=== PATIENT | female | born 1955 | race Caucasian/White ===

== ENCOUNTER → 2023-05-04 10:48 | Outpatient (CLI) | payer OTHER, SELFPAY ==
--- NOTE | ~2023-05-04 | US_ITS ---
EXAMINATION: US pelvic complete w TV DATE: 05/04/2023 12:07 INDICATION: Postmenopausal bleeding Comparison:No prior studies for comparison. TECHNIQUE: Multiple transabdominal and endovaginal sonographic images of the pelvis performed. FINDINGS: The uterus measures 7 x 3.3 x 3.9 cm. Uterus is retroverted The endometrial complex measure s 11 mm. The right ovary measures 2.2 x 1.6 x 1.4 cm and the left ovary measures 2.1 x 2.4 x 1.5 cm. There ar e small follicles in each ovary. Normal doppler signal in both ovaries. There is no free fluid in the pelvis. There are no abnormal masses seen on either side. IMPRESSION: 1. Thickened endomtrial complex. The differential diagnosis includes endometrial hyperplasia, polyp a nd carcinoma. Biopsy is recommended. Reviewed, dictated and finalized at location L. R BROKER IMPRESSION: 1. Thickened endomtrial complex. The differential diagnosis includes endometria l hyperplasia, polyp and carcinoma. Biopsy is recommended.
== END ==
PROVIDERS: PCP Family Medicine; Visit Provider Family Medicine
DX: N95.0 Postmenopausal bleeding (principal); R93.89 Abnormal findings on diagnostic imaging of other specified body structures
CPT/HCPCS: 76830; 76856

== ENCOUNTER → 2023-08-17 12:03 | Outpatient (CLI) | payer OTHER, SELFPAY ==
--- NOTE | ~2023-08-17 | MM_ITS ---
EXAMINATION: MM screening shani BI w omaira HISTORY: Screening mammogram TECHNIQUE: Craniocaudal and mediolateral oblique 3-D tomosynthesis images were obtained and synthetic 2-D images were generated. CAD analysis was submitted and interpreted. COMPARISON: No prior mammogram is available for comparison at this institution. BREAST PARENCHYMAL COMPOSITION: There are scattered areas of fibroglandular density. FINDINGS: There is no evidence of suspicious mass, calcification, or architectural distortion to sugg est malignancy in either breast. There has been no suspicious interval change. IMPRESSION: 1. No mammographic evidence of malignancy. 2. Recommend routine screening mammography in one year. BI-RADS Category 1: Negative Reviewed, dictated and finalized at location A. ET COUNTER
--- NOTE | ~2023-08-17 | XR_ITS ---
AP and lateral views of the bilateral hips Clinical history: Pain Findings: No acute fracture or dislocation is seen. Osseous alignment is anatomic. Bilateral hip join ts and SI joints are preserved. Soft tissues are unremarkable. Impression: No significant abnormality is seen. Reviewed, dictated and finalized at [facility]. [employer] Impression: No significant abnormality is seen.
== END ==
PROVIDERS: PCP Family Medicine; Visit Provider Family Medicine
DX: Z00.00 Encounter for general adult medical examination without abnormal findings (principal); Z12.31 Encounter for screening mammogram for malignant neoplasm of breast; M25.551 Pain in right hip; M25.552 Pain in left hip
CPT/HCPCS: 73521; 77063; 77067

== ENCOUNTER 2023-11-24 13:41 | Outpatient (CLI) | payer OTHER, SELFPAY ==
--- NOTE | ~2023-11-24 | US_ITS ---
EXAMINATION: US carotid duplex BI DATE: 11/24/2023 14:04 INDICATION: Abnormal thermal scan. TECHNIQUE: Grayscale, color Doppler, and pulsed Doppler images of the cervical carotid arteries were obtained. The degree of vessel stenosis is placed in one of the following categories: normal, <50%, 5 0-69%, >=70% but less than near-occlusion, near-occlusion, or total occlusion. Note that percent sten osis relative to normal distal artery lumen diameter is indirectly measured from velocity measurement s as described by Parker, et al. Radiology 2003; 229:340-346. Notes: Normal: Peak systolic velocity <125 centimeters/sec and no plaque <50%. Peak systolic velocity <125 ( EDV <40; ICA/CCA PSV ratio <2.0; used these factors only a tandem lesions or low cardiac output or co ntralateral disease) 50-69 %: PSV 125-230 (EDV 40-100; ratio 2-4) >= 70% but less than near occlusion: PSV greater than 230 (EDV > 100; ratio> 4.0) Near Occlusion: PSV that is variable; markedly narrowed lumen Occlusion: Absent flow on color/spectral Doppler and no lumen on castillo scale. COMPARISON: None. FINDINGS: RIGHT: The right common carotid artery (CCA) peak systolic velocity (PSV) is 71 cm/s. The right internal car otid artery (ICA) PSV is 64 cm/s. The right ICA end-diastolic velocity (EDV) is 22 cm/s. The right IC A/CCA PSV ratio is 0.9. The external carotid artery (ECA) PSV is 70 cm/s. There is antegrade flow in the right vertebral artery. LEFT: The left CCA PSV is 53 cm/s. The left ICA PSV is 73 cm/s. The left ICA EDV is 27 cm/s. The left ICA/C CA PSV ratio is 1.4. The ECA PSV is 65 cm/s. There is antegrade flow in the left vertebral artery. I ncidental note is made of a 2.8 cm left thyroid mass. IMPRESSION: 1. Less than 50% stenosis in the right internal carotid artery by sonographic criteria. 2. Less than 50% stenosis in the left internal carotid artery by sonographic criteria. 3: Left thyroid mass measures 2.8 cm. Recommend dedicated thyroid ultrasound. Reviewed, dictated and finalized at location B. IMPRESSION: 1. Less than 50% stenosis in the right internal carotid artery by sonographic c riteria. 2. Less than 50% stenosis in the left internal carotid artery by sonographic cr iteria. 3: Left thyroid mass measures 2.8 cm. Recommend dedicated thyroid ultrasound.
== END 2023-11-24 13:42 ==
LOC: MICIMG 13:42
PROVIDERS: PCP Family Medicine; Visit Provider Family Medicine
DX: R93.89 Abnormal findings on diagnostic imaging of other specified body structures (principal); I65.23 Occlusion and stenosis of bilateral carotid arteries
CPT/HCPCS: 93880

== ENCOUNTER 2023-12-01 13:09 | Outpatient (CLI) | payer OTHER, SELFPAY ==
--- NOTE | ~2023-12-01 | US_ITS ---
EXAMINATION: US thyroid DATE: 12/01/2023 13:35 INDICATION: Thyroid nodule. TECHNIQUE: Multiple ultrasound images of the thyroid were obtained. COMPARISON: Carotid ultrasound 11/24/2023. FINDINGS: The right thyroid lobe measures 4.3 x 1.0 x 0.8 cm. The left thyroid lobe measures 5.3 x 2.2 x 1.9 c m. In the left thyroid lobe, there is a 2.9 cm almost entirely solid, hypoechoic, wider than tall no dule with smooth margin without echogenic foci (TI-RADS TR4). IMPRESSION: 1. Left thyroid nodule. Ultrasound-guided fine needle aspiration is recommended. Reviewed, dictated and finalized at location A. IMPRESSION: 1. Left thyroid nodule. Ultrasound-guided fine needle aspiration is recommended .
== END 2023-12-01 13:10 ==
LOC: MICIMG 13:10
PROVIDERS: PCP Family Medicine; Visit Provider Family Medicine
DX: E04.9 Nontoxic goiter, unspecified (principal)
CPT/HCPCS: 76536

== ENCOUNTER 2024-11-03 15:00 | Outpatient (RCR) | payer OTHER, SELFPAY ==
--- NOTE | 2024-10-26 12:57 | OTOPEVAL1 ---
Assessment and note entered by Renato Arango, OTR/L, CHT OT Evaluation Information 10/26/24 Assessment Status Evaluation Subjective Information Patient reporting bilateral pain in the base of her thumbs. Functionally she reports feeling pain and limited with weight bearing on her hands during yoga, gardening/pulling weeds, pinching/ grabbing items out of the microwave, and writing. She reports noticing the right thumb pain about 6 months ago and then the left steadily increasing in the last 3 months. Reported Pain Level Pain Score 3/10 (R) thumb 2/10 (L) thumb Assessment OT Clinical Summary Patient referred to OT with dx of bilateral wrist pain. She presents with pain the wrists/base of the thumbs. 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 She presents with decreased dress fitter and especially decreased pinch strengths. She demonstrates reduced thumb mechanics during functional activities. Skilled OT indicated for education on joint protection, orthotic fabrication, therapeutic exercise, modalities, manual therapy, and adaptive ADL techniques to facilitate improved functional bilateral hand use. Plan of Care Interventions Therapeutic Exercise,Manual Therapy,Therapeutic Activities,Hot Pack/Cold Pack,Check Out for Orthotic/Prosthetic,Ultrasound,Paraffin OT Services Indicated Yes These treatments will address the objective and functional deficits as defined above. The patient will be advanced safely and appropriately in order for the patient to progress towards his/her prior level of function. Additional exercises will be introduced and as well as a comprehensive home exercise program upon discharge, if needed, ?to ensure carryover of functional gains achieved in the clinic. This treatment plan has been reviewed and agreement upon by the patient.
--- NOTE | 2024-10-26 12:57 | OPREHPOC ---
Outpatient Therapy Plan of Care This is a Multidisciplinary Plan of Care that may contain components documented by all disciplines (PT, OT, and ST.) OT Problem 1 OT Problem #1 Knowledge Deficit OT Goal 1 Goal / Goal Update Patient to be independent with instructed materials. Target Visit 5 OT Problem 2 OT Problem #2 Pain OT Goal 1 Goal / Goal Update Patient to report bilateral thumb pain to reduce to 0/10 at rest and 2/10 at worst with ADLs. Target Visit 5 OT Problem 3 OT Problem #3 Impaired Sensation OT Goal 1 Goal / Goal Update 1. 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 2. Patient to be able to progress bilateral wrist strengthening with 2 lb. free weight x20 reps without pain. Target Visit 5
--- NOTE | 2025-01-18 08:42 | OTOPDC ---
Assessment and note entered by Renato Arango, OTOscar/Naseem, HARRY OT D/C 01/18/25 OT Clinical Summary Patient referred to OT with dx of bilateral wrist pain. She presented with pain the wrists/base of the thumbs. 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 She attended the initial evaluation and 1 follow up appointment. She has not returned for therapy since 11/03/24. Discharging from our services at this time. OT Services Indicated No
== END 2025-01-18 10:15 | disposition home or self-care (01) ==
LOC: ANHOT 15:00
PROVIDERS: PCP Family Medicine; Visit Provider Family Medicine
DX: M25.531 Pain in right wrist (principal)
CPT/HCPCS: 97110; 97165; L3913

== ENCOUNTER 2025-04-27 02:47 | Day surgery (SDC) | payer OTHER, SELFPAY ==
[2025-04-18 09:08] VITALS: BMI 22.2
--- OUTSIDE RECORDS SUMMARY | 2025-04-27 02:49 | XMS_ITS | Clinical Summary ---
Author Organization [facility] Address [address] [place] [address] Care Team Providers Care News Library Director Name Role Phone Unavailable Primary Care Provider Unavailabl e Source Comments [facility],non-owned Affiliates and Associated Physician Practices is amultiple site organization consisting of ambulatory clinics and hospital sitesin [place], [place], [place] and [place]. This disclosure is being madepursuant to the Care Everywhere program and may not contain all information available regarding this patient. 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 Gender Identity Not on file Sexual Orientation Not on file Plan of Treatment Health Maintenance Due Date Last Done Comments BONE DENSITY TESTING 1955 COLOGUARD (AGES 45-75) - COL ON CA SCREENING 1957 COLON MONITORING 1957 COLONOSCOPY - COLON CA SCREENING 1957 CT COLONOGRAPHY - COLON CA SCREENING 1957 Colorectal Cancer Screening 1957 FIT - COLON CA SCREENING 1957 FLEX SIG - COLON CA SCREENING 1957 LIPID TESTING 1957 MAMMOGRAM 1957 HEPATITIS C SCREENING 11/29/1975 DTAP/TDAP/TD VACCINES (1 - Tdap) 1976 PNEUMOCOCCAL VACCINE 50+ (1 of 1 - PCV) 12/04/2007 ZOSTER VACCINE (1 of 2) 12/04/2007 DEPRESSION SCREENING 06/14/2024 COVID-19 VACCINE (1 - 2024-2 6 season) 2025 INFLUENZA VACCINE (#1) 2025 Respiratory Syncytial Virus (RSV) Vaccine Pt: or over 60 yrs (1 - 1-dose 75+ series) 2032 HEPATITIS B VACCINE Aged Out No longe r eligible based on patient's age to complete this topic HIB VACCINE Aged Out No longer eligi ble based on patient's age to complete this topic HPV VACCINE Aged Out No longer eligi ble based on patient's age to complete this topic MENINGOCOCCAL (Group B) VACC INE SHARED DECISION-MAKING Aged Out No longer eligibl e based on patient's age to complete this topic MENINGOCOCCAL GROUPS A/C/Y/W VACCINE Aged Out No longer eligible b ased on patient's age to complete this topic Insurance [employer]
--- OUTSIDE RECORDS SUMMARY | 2025-04-27 02:49 | XMS_ITS | Encounter Summary ---
Author Organization [facility] Address [address] [place] [address] Care Team Providers Care Job Training Specialist Name Role Phone Unavailable Primary Care Provider Unavailabl e Encounter Details Date Type Department Care Team (Late st Contact Info) Description 06/13/2018 Lab Requisition 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 Gender Identity Not on file Sexual Orientation Not on file documented as of this encounter Plan of Treatment Not on file documented as of this encounter Procedures Procedure Name Priority Date/Time Associated Diagnosis Comments DERMATOPATH TECHNICAL REPORT Routine 06/09/2018 12:00 AM ENTERTAINMENT USHER documented in this encounter Results * DERMATOPATH TECHNICAL REPORT (06/09/2018 12:00 AM ENTERTAINMENT USHER) Case Report Dermatopathology Report Case: [id number] Authorizing Provider: Sisi Wade MD Collected: 06/09/2018 12:00 AM Pathologist: Jenny Almaguer MD Received: 06/13/2018 07:02 AM Specimen: Skin, left chest 8 12:02 PM ENTERTAINMENT USHER DERMATOPATHOLOGY LABORATORY Clinical History Compound melanocytic proliferation bx proven. 8 12:02 PM ENTERTAINMENT USHER DERMATOPATHOLOGY LABORATORY Gross Description Specimen A: Received is one formalin filled container labeled with the patient's name and designated left chest. The specimen consists of a non-oriented ellipse of skin measuring [id number]. There is a previous biopsy site at the center of the epidermal surface that measures 6x5mm. The margin is inked green. The 12 o'clock and 6 o'clock tips are submitted in cassette 1. The remainder of the ellipse is serially sectioned and submitted in cassette 2-3. Jar 0. [facility] Dermatopathology Laboratory performed the technical component only. 8 12:02 PM [facility] Embedded Images 8 12:02 PM [facility] DISCLAIMER An external and internal positive and negative controls are appropriate for the histochemical, immunohistochemical and immunofluorescence stain(s) in this case (if any), except where stated explicitly. The performance characteristics of the stain(s) cited in this report were developed and its performance characteristic determined by the Dermatopathology Laboratory at [facility]. These tests need not be, and therefore are not, approved by the [place] Food and Drug Administration. The tests are used for clinical purposes. 8 12:02 PM [facility] at 1202 ENTERTAINMENT USHER Pathology/Cytolog y TISSUE SPECIMEN FROM SKIN / Unknown 06/09/2018 06/13/2018 7:02 AM ENTERTAINMENT USHER Sisi Wade MD LAB - PATHOLOGY/CYTOLOGY OR DERABLES Final Result DERMATOPATHOLOGY LABORATORY [facility] - Department of Dermatology [address] [place] [address], [address] [place] [address], [facility] [phone] documented in this encounter Visit Diagnoses Not on filedocumented in this encounter
--- OUTSIDE RECORDS SUMMARY | 2025-04-27 02:49 | XMS_ITS | Encounter Summary ---
Author Organization [facility] Address [address] [place] [address] Care Team Providers Care Tender Labor Name Role Phone Unavailable Primary Care Provider Unavailabl e Encounter Details Date Type Department Care Team (Late st Contact Info) Description 02/24/2018 Lab Requisition [facility] Care DermPath Lab [address] [facility] [place] [id number] Sisi Wade MD [address] 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 Gender Identity Not on file Sexual Orientation Not on file documented as of this encounter Plan of Treatment Not on file documented as of this encounter Procedures Procedure Name Priority Date/Time Associated Diagnosis Comments DERMATOPATH TECHNICAL REPORT Routine 02/22/2018 12:00 AM CDT documented in this encounter Results * DERMATOPATH TECHNICAL REPORT (02/22/2018 12:00 AM CDT) Case Report Dermatopathology Report Case: [id number] Authorizing Provider: Sisi Wade MD Collected: 02/22/2018 12:00 AM Pathologist: Jenny Almaguer MD Received: 02/24/2018 06:40 AM Specimens: A) - Skin, left superior amish B) - Skin, left chest 8 9:45 AM CDT DERMATOPATHOLOGY LABORATORY Addendum 1 At the request of the diagnosing physician, the technical component for MART-1/Melan A on Specimen B was performed by [facility] Dermatopathology Laboratory. 8 9:45 AM CDT DERMATOPATHOLOGY LABORATORY Addendum electronically signed by Jenny Almaguer MD on 02/28/2018 at 0945 CDT Clinical History A: BCC. Check margins. B: Nevus. 9:45 AM CDT DERMATOPATHOLOGY LABORATORY Gross Description Specimen A: Received is one formalin filled container labeled with the patient's name and designated left superior amish. The specimen consists of a shave biopsy measuring [id number]. The margin is inked green. Jar 0. Specimen B: Received is one formalin filled container labeled with the patient's name and designated left chest. The specimen consists of a shave biopsy measuring [id number]. Jar 0. [facility] Dermatopathology Laboratory performed the technical component only. 9:45 AM CDT DERMATOPATHOLOGY LABORATORY Embedded Images 9:45 AM CDT DERMATOPATHOLOGY LABORATORY DISCLAIMER An external and internal positive and negative controls are appropriate for the histochemical, immunohistochemical and immunofluorescence stain(s) in this case (if any), except where stated explicitly. The performance characteristics of the stain(s) cited in this report were developed and its performance characteristic determined by the Dermatopathology Laboratory at [facility]. These tests need not be, and therefore are not, approved by the [place] Food and Drug Administration. The tests are used for clinical purposes. 8 9:45 AM T DERMATOPATHOLOGY LABORATORY at 1342 CDT Pathology/Cytology TISSUE SPECIMEN FROM SKIN / Unknown 02/22/2018 02/24/2018 6:40 AM CDT Miscellaneous samples (specimen) TISSUE SPECIMEN FROM SKIN / Unknown 02/22/2018 02/24/2018 6:40 AM CDT Sisi Wade MD LAB - PATHOLOGY/CYTOLOGY OR DERABLES Edited Result - Final DERMATOPATHOLOGY LABORATORY [facility] - Department of Dermatology [address] [facility] 5th [place] [address], [facility] [phone] documented in this encounter Visit Diagnoses Not on filedocumented in this encounter
--- OUTSIDE RECORDS SUMMARY | 2025-04-27 02:49 | XMS_ITS | Data Portability ---
Author Organization JEANNETTE - [facility], [place], [facility] Address [address] [place] [address] Assessment Encounter Date Assessment Date Assessment LastModified by Organization Details LastModified Time 07/24/2022 07/24/2022 Reviewed blood work results [email or web address] Not available 07/24/2022 09:32:59 04/28/2023 04/28/2023 Laura NutriEval cwillbrand Not available 04/28/2023 10:45:56 11/09/2023 11/09/2023 Call [facility] for hip Xray results. cwillbrand Not available 11/09/2023 16:19:04 10/13/2024 10/13/2024 [place] Argentum - shot in left wrist today cwillbrand Not available 10/13/2024 10:35:53 Plan of Treatment Reminders Order Date Submit Date Provider Last Modified By Organization Details Last Modified Time Details Appointments None recorded. Lab TSH, serum or plasma 2024 025 PENELOPE Not available 5 03:11:26 T4, free, serum 2024 025 PENELOPE Not available 03:11:26 T3, free, serum or plasma 2024 025 amalic Not available 5 20:40:42 HbA1c (hemoglobi n A1c), blood 2024 025 PENELOPE Not available 03:11:28 lipid panel, serum 2024 025 amalic Not available 5 20:40:42 vitamin B12 + folate, serum or blood 2024 025 PENELOPE Not available 5 03:11:26 CMP, serum or plasma 2024 025 PENELOPE Not available 5 03:11:25 CBC w/ auto diff 2024 025 PENELOPE Not available 5 03:11:23 iron + total iron-cathleen ng capacity (TIBC), serum 2024 025 amalic Not available 5 20:40:41 ferritin, serum or plasma 2024 025 amalic Not available 5 20:40:42 CRP, high sensitivit y, serum or plasma 2024 025 PENELOPE Not available 5 03:11:24 erythrocyt e sedimentat ion rate by westergren method 2024 025 amalic Not available 5 20:40:42 ldh, serum or plasma 2024 025 amalic Not available 5 20:40:42 rf (rheumatoi d factor) + anti-ccp abs, serum 2024 025 amalic Not available 5 20:40:42 XIN (antinucle ar antibodies ) screen, ifa, serum 2024 025 amalic Not available 5 20:40:42 estradiol, serum 2024 025 PENELOPE Not available 5 03:11:27 testostero ne, free + total, serum 2024 025 PENELOPE Not available 5 03:11:28 progestero ne, serum 2024 025 PENELOPE Not available 5 03:11:27 dhea-sulfa te, serum 2024 025 PENELOPE Not available 5 03:11:24 TSH, serum or plasma 2023 024 amalic Not available 4 07:46:11 T4, free, serum 2023 024 amalic Not available 4 07:46:11 vitamin D, 25-hydroxy , total, serum 2023 024 PENELOPE Not available 4 03:39:56 HbA1c (hemoglobi n A1c), blood 2023 024 PENELOPE Not available 4 01:09:47 CBC w/ auto diff 2023 024 PENELOPE Not available 4 01:09:45 CMP, serum or plasma 2023 024 PENELOPE Not available 4 01:09:47 lipid panel, serum 2023 024 amalic Not available 4 21:50:38 CRP, high sensitivit y, serum or plasma 2023 024 PENELOPE Not available 4 01:09:46 estradiol, serum 2023 024 PENELOPE Not available 4 01:09:48 progestero ne, serum 2023 024 PENELOPE Not available 4 01:09:48 testostero ne, free + total, serum 2023 024 PENELOPE Not available 4 01:09:49 dhea-sulfa te, serum 2023 024 PENELOPE Not available 4 01:09:47 lyme igg + igm Ab, western blot, serum 2023 024 PENELOPE Not available 4 01:09:48 HbA1c (hemoglobi n A1c), blood 2022 023 amalic Not available 3 20:26:25 testostero ne, free + total, serum 2022 023 amalic Not available 3 07:19:06 estradiol, serum 2022 023 PENELOPE Not available 3 18:00:34 progestero ne, serum 2022 023 PENELOPE Not available 3 18:00:34 dhea-sulfa te, serum 2022 023 PENELOPE Not available 3 18:00:31 lipid panel, serum 2022 023 amalic Not available 3 07:19:06 CMP, serum or plasma 2022 023 PENELOPE Not available 3 18:00:33 CBC w/ auto diff 2022 023 PENELOPE Not available 3 18:00:30 HbA1c (hemoglobi n A1c), blood 2022 023 PENELOPE Not available 3 18:00:31 CRP, high sensitivit y, serum or plasma 2022 023 amalic Not available 3 07:19:06 vitamin D3, 25-hydroxy , serum 2022 023 amalic Not available 3 07:19:06 Referral occupation al therapist, hand referral 2024 025 [facility], [address], [place], [address], 5 20:42:45 physical therapist referral 2023 024 amalic Not available 4 07:32:14 physical therapist referral 2022 023 amalic Not available 3 07:36:25 Procedures colonoscop y screening (PROC) 2024 025 [email or web address] Mike conroy MD, [address], [address], [place], [address], 5 07:28:15 colonoscop y screening (PROC) 2022 023 amalic Not available 3 20:32:57 Surgeries None recorded. Imaging XR, wrist 2024 025 [email or web address] [facility], [address], [address], [place], [address], 5 12:16:59 US, duplex, carotid artery 2023 024 amalic Not available 4 07:31:01 XR, hip, bilateral 2022 023 amalic Not available 3 07:42:46 MAMMO, screening, digital, bilateral 2022 023 amalic Not available 3 07:42:46 Medication Orders [place] Argentum 2024 025 [email or web address] Not available 5 19:02:13 Patient TargetsNo targets recorded. Patient Instructions Encounter Date Encounter Id Patient Instructions Last Modified By Organization Details Last Modified Time 07/24/2022 [id number] Fungus A-Mungus - Environpro - [email or web address] Biotics ADP 1 daily NAC 500mg twice daily Alpha Lipoic Acid 300mg twice daily PhytoMulti 2 daily - stop the Methyl B complex Continue Vitalzymes chewable 2 tablets daily Liver Cleanse 1 capsule daily cwillbrand Not available 07/24/2022 09:30:35 04/28/2023 [id number] Rhus Tox - 30c 3 -4 pellets 3 -4 times per day for pain relief Referral to [facility] for Colonoscopy Orthomolecular Fiber Plus Capsules - 3 capsules daily to help with BM. Nature's Way - Activated Charcoal - 1 capsule daily 1 hour apart Look into www.avandeo to help with detox. Try to sweat for 20 minutes two time per week cwillbrand Not available 04/28/2023 10:45:28 09/17/2023 [id number] Pure Encapsulati ons Tribulus Formula - 1 - 2 tablets in the morning MediHerb Tribulus 1 -2 tablets every morning Mineral Blend Humic Fulvic Acid - 1 ounce daily to help with minerals and detox Silicea 30c 3 pellets 3 - 4 times per day to help with head sore. If this gets more painful or grows in size, follow up with a engineering professionals. Referral to Ugo Marroquin - [phone] - income tax return preparer cwillbrand Not available 09/17/2023 11:12:27 11/09/2023 [id number] Referral to Jaquan Morley - [email or web address] Referral to Master Beckham - [email or web address] cwillbrand Not available 11/09/2023 16:33:45 10/13/2024 [id number] Biotics ADP 1 tw ice daily for 2 months for energy level cwillbrand Not available 10/13/2024 11:26:02 Reason for Referral Physical Therapist Referral for Pain of hip region Referring Physician: Paola Fernandez, Family Medicine, Encounter Date: 04/28/2023 Physical Therapist Referral for Pain of hip region Referring Physician: Paola Fernandez Family Medicine, Encounter Date: 11/09/2023 Referring Physician: Paola putnam, Family Medicine, Encounter Date: 10/13/2024 Results Created Date Observation Date Name Description Value Unit Range Abnormal Flag Note LastModifiedBy Organization Detail LastModifiedTime 07/24/1907/24/2022 CBC W/DIF F WBC 3.9 10'3/ uL 3.6-10 .2 Not Available [facility] (Lab) [address], [place], [address], 07/30/2022 18:00:22 07/24/19 23 07/24/2022 CBC W/DIF F RBC 4.50 10'6/ uL (based on docume nted legal sex) 4.10-5 .30 Not Available [facility] (Lab) [address], [place], [address], 07/30/2022 18:00:22 07/24/19 23 07/24/2022 CBC W/DIF F HGB 13.2 g/dL (based on docume nted legal sex) 11.9-1 5.8 Not Available [facility] (Lab) [address], [place], [address], 07/30/2022 18:00:22 07/24/19 23 07/24/2022 CBC W/DIF F HCT 40.7 % (based on docume nted legal sex) 37.4-4 8.3 Not Available [facility] (Lab) [address], [place], [address], 07/30/2022 18:00:22 07/24/19 23 07/24/2022 CBC W/DIF F MCV 90.4 fL 82.0-9 9.0 Not Available [facility] (Lab) [address], [place], [address], 07/30/2022 18:00:22 07/24/19 23 07/24/2022 CBC W/DIF F MCH 29.3 pg 27.0-3 3.0 Not Available [facility] (Lab) [address], [place], [address], 07/30/2022 18:00:22 07/24/19 23 07/24/2022 CBC W/DIF F MCHC 32.4 g/dL 32.0-3 6.0 Not Available [facility] (Lab) [address], [place], [address], 07/30/2022 18:00:22 07/24/19 23 07/24/2022 CBC W/DIF F RDW 13.6 % 11.0-1 5.0 Not Available [facility] (Lab) [address], [place], [address], 07/30/2022 18:00:22 07/24/19 23 07/24/2022 CBC W/DIF F plt 240 10'3/ uL 150-45 0 Not Available [facility] (Lab) [address] [facility], [place], [address], 07/30/2022 18:00:22 07/24/19 23 07/24/2022 CBC W/DIF F MPV 11.3 fL 9.8-12 .7 Not Available [facility] (Lab) [address], [place], [address], 07/30/2022 18:00:22 07/24/19 23 07/24/2022 CBC W/DIF F NRBC's 0.0 % 0 Not Available [facility] (Lab) [address], [place], [address], 07/30/2022 18:00:22 07/24/19 23 07/24/2022 CBC W/DIF F absolute NRBCs 0.0 10'3/ uL 0 Not Available [facility] (Lab) [address] [facility], [place], [address], 07/30/2022 18:00:22 07/24/19 23 07/24/2022 CBC W/DIF F neutrophils 49.6 % 37.0-7 2.0 Not Available [facility] (Lab) [address] [facility], [place], [address], 07/30/2022 18:00:22 07/24/19 23 07/24/2022 CBC W/DIF F lymphocytes 39.5 % 16.0-4 8.0 Not Available [facility] (Lab) [address] [facility], [place], [address], 07/30/2022 18:00:22 07/24/19 23 07/24/2022 CBC W/DIF F monocytes 7.0 % 4.0-14 .0 Not Available [facility] (Lab) [address] [facility], [place], [address], 07/30/2022 18:00:22 07/24/19 23 07/24/2022 CBC W/DIF F eosinophils 3.4 % 0.0-9. 0 Not Available [facility] (Lab) [address] [facility], [place], [address], 07/30/2022 18:00:22 07/24/19 23 07/24/2022 CBC W/DIF F basophils 0.5 % 0.0-2. 0 Not Available [facility] (Lab) [address] [facility], [place], [address], 07/30/2022 18:00:22 07/24/19 23 07/24/2022 CBC W/DIF F immature granulocytes 0.0 % no define d refere nce range Not Available [facility] (Lab) [address] [facility], [place], [address], 07/30/2022 18:00:22 07/24/19 23 07/24/2022 CBC W/DIF F absolute neutrophils 1.9 10'3/ uL 1.1-6. 0 Not Available [facility] (Lab) [address] [facility], [place], [address], 07/30/2022 18:00:22 07/24/19 23 07/24/2022 CBC W/DIF F absolute lymphocytes 1.5 10'3/ uL 0.7-3. 4 Not Available [facility] (Lab) [address] [facility], [place], [address], 07/30/2022 18:00:22 07/24/19 23 07/24/2022 CBC W/DIF F absolute monocytes 0.3 10'3/ uL 0.3-1. 0 Not Available [facility] (Lab) [address] [facility], [place], [address], 07/30/2022 18:00:22 07/24/19 23 07/24/2022 CBC W/DIF F absolute eosinophils 0.1 10'3/ uL 0.0-0. 6 Not Available [facility] (Lab) [address] [facility], [place], [address], 07/30/2022 18:00:22 07/24/19 23 07/24/2022 CBC W/DIF F absolute basophils 0.0 10'3/ uL 0.0-0. 1 Not Available [facility] (Lab) [address], [place], [address], 07/30/2022 18:00:22 07/24/19 23 07/24/2022 CBC W/DIF F absolute immature granulocytes 0.0 10'3/ uL 0.00-0 .10 2022 1:51 AM: P indic ates parti al resul ts on a panel have been relea sed. Addit ional resul ts will follo w. 2022 1:51 AM: This resul t has been final verif ied. No addit ional or lovett ed resul ts are expec shannon. Not Available [facility] (Lab) [address], [place], [address], 07/30/2022 18:00:22 07/24/19 23 07/24/2022 HEMOG LOBIN A1C hemoglobin A1C 5.9 % 0-5.6 high The Ameri can Diabe jenny Assoc iatio n recom mends that a prima ry goal of thera py denniseul d be a HBA1C of < 7% and that physi cians shoul d reeva luate the treat ment regim en in patie nts with HBA1C value s consi stent ly > 8%. <5.7% Radha l 5.7 - 6.4% Incre ased risk for diabe jenny >=6.5 % Diagn ostic of diabe jenny <7.0% Goal of thera py >8.0% Actio n sugge sted Not Available [facility] (Lab) [address], [place], [address], 07/30/2022 18:00:31 07/24/19 23 07/24/2022 DHEA SULFA TE DHEA-sulfate 157 ug/dL Femal e Range s Age(y ) Range (ug/d L) 10-15 34-28 0 15-20 65-36 8 20-25 148-4 07 25-35 99-34 0 35-45 61-33 7 45-55 35-25 6 55-65 19-20 5 65-75 9-246 > 75 12-15 4 Not Available [facility] (Lab) [address] [facility], [place], [address], 07/30/2022 18:00:31 07/24/19 23 07/24/2022 CRP (C-RE ACTIV E PROTE IN) C-reactive protein 1.4 mg/L 0.0-10 .0 Not Available [facility] (Lab) [address] [facility], [place], [address], 07/30/2022 18:00:32 07/24/19 23 07/24/2022 LIPID PANEL ,AMA (LDL- CALC) total cholesterol 193 mg/dL 0-199 Not Available [facility] (Lab) [address] [place], [address], 07/30/2022 18:00:33 07/24/19 23 07/24/2022 LIPID PANEL ,AMA (LDL- CALC) triglyceride s 45 mg/dL 0.00-1 50.00 NCEP Refer ence Value s for Trigl yceri cary: Radha l: <150 mg/dL Borde rline High: 150 - 199 mg/dL High: 200 - 499 mg/dL Very High: >/= 500 mg/dL Not Available [facility] (Lab) [address] [place], [address], 07/30/2022 18:00:33 07/24/19 23 07/24/2022 LIPID PANEL ,AMA (LDL- CALC) HDL cholesterol 92 mg/dL >40 Not Available [facility] (Lab) [address] [place], [address], 07/30/2022 18:00:33 07/24/19 23 07/24/2022 LIPID PANEL ,AMA (LDL- CALC) LDL cholesterol 92 mg/dL 0-99 Cutof f value s recom sapna d by the Adrianne nal Mile stero l Educa tion Progr am: KAPIL ABLE: Miel stero l <200 mg/dL LDL <100 mg/dL BORDE RLINE : Mile stero l 200-2 39 mg/dL LDL 101-1 59 mg/dL HIGHE R RISK: Mile stero l >240 mg/dL LDL >160 mg/dL , HDL <40 mg/dL Not Available [facility] (Lab) [address] [facility], [place], [address], 07/30/2022 18:00:33 07/24/19 23 07/24/2022 LIPID PANEL ,AMA (LDL- CALC) non-HDL cholesterol 101 mg/dL no refere nce range A reaso nable goal for non-H DL mile stero l is one that is 30 mg/dL highe r than the LDL mile stero l goal. Not Available [facility] (Lab) [address] [facility], [place], [address], 07/30/2022 18:00:33 07/24/19 23 07/24/2022 LIPID PANEL ,AMA (LDL- CALC) chol/HDL ratio 2.1 . 0.0-5. 0 Not Available [facility] (Lab) [address] [place], [address], 07/30/2022 18:00:33 07/24/19 23 07/24/2022 CMP(C OMPRE HENSI VE METAB OLIC PANEL ) sodium 138 mmol/ L 133-14 6 Not Available [facility] (Lab) [address] [place], [address], 07/30/2022 18:00:33 07/24/19 23 07/24/2022 CMP(C OMPRE HENSI VE METAB OLIC PANEL ) potassium 4.1 mmol/ L 3.5-5. 1 Not Available [facility] (Lab) [address] [place], [address], 07/30/2022 18:00:33 07/24/19 23 07/24/2022 CMP(C OMPRE HENSI VE METAB OLIC PANEL ) chloride 103 mmol/ L 98-107 Not Available [facility] (Lab) [address] [facility], [place], [address], 07/30/2022 18:00:33 07/24/19 23 07/24/2022 CMP(C OMPRE HENSI VE METAB OLIC PANEL ) carbon dioxide 27 mmol/ L 21-31 Not Available [facility] (Lab) [address] [facility], [place], [address], 07/30/2022 18:00:33 07/24/19 23 07/24/2022 CMP(C OMPRE HENSI VE METAB OLIC PANEL ) anion gap 8 mmol/ L 4-13 Not Available [facility] (Lab) [address] [facility], [place], [address], 07/30/2022 18:00:33 07/24/19 23 07/24/2022 CMP(C OMPRE HENSI VE METAB OLIC PANEL ) blood urea nitrogen 12 mg/dL 7-25 Not Available [facility] (Lab) [address] [facility], [place], [address], 07/30/2022 18:00:33 07/24/19 23 07/24/2022 CMP(C OMPRE HENSI VE METAB OLIC PANEL ) creatinine 0.64 mg/dL 0.60-1 .30 Not Available [facility] (Lab) [address] [facility], [place], [address], 07/30/2022 18:00:33 07/24/19 23 07/24/2022 CMP(C OMPRE HENSI VE METAB OLIC PANEL ) egfrcr (CKD-epi 2020) >90 mL/mi n/1.7 3_m2 >=60 Not Available [facility] (Lab) [address] [facility], [place], [address], 07/30/2022 18:00:33 07/24/19 23 07/24/2022 CMP(C OMPRE HENSI VE METAB OLIC PANEL ) calcium 9.2 mg/dL 8.3-10 .5 Not Available [facility] (Lab) [address] [facility], [place], [address], 07/30/2022 18:00:33 07/24/19 23 07/24/2022 CMP(C OMPRE HENSI VE METAB OLIC PANEL ) glucose 96 mg/dL 70-100 Not Available [facility] (Lab) [address] [facility], [place], [address], 07/30/2022 18:00:33 07/24/19 23 07/24/2022 CMP(C OMPRE HENSI VE METAB OLIC PANEL ) protein, total 7.0 g/dL 6.4-8. 3 Not Available [facility] (Lab) [address] [facility], [place], [address], 07/30/2022 18:00:33 07/24/19 23 07/24/2022 CMP(C OMPRE HENSI VE METAB OLIC PANEL ) albumin 4.4 g/dL 3.5-5. 0 Not Available [facility] (Lab) [address] [facility], [place], [address], 07/30/2022 18:00:33 07/24/19 23 07/24/2022 CMP(C OMPRE HENSI VE METAB OLIC PANEL ) ALT 12 units /L 9-43 Not Available [facility] (Lab) [address] [facility], [place], [address], 07/30/2022 18:00:33 07/24/19 23 07/24/2022 CMP(C OMPRE HENSI VE METAB OLIC PANEL ) alkaline phosphatase 67 units /L 34-104 Not Available [facility] (Lab) [address] [facility], [place], [address], 07/30/2022 18:00:33 07/24/19 23 07/24/2022 CMP(C OMPRE HENSI VE METAB OLIC PANEL ) AST 17 units /L 13-39 Not Available [facility] (Lab) [address] [facility], [place], [address], 07/30/2022 18:00:33 07/24/19 23 07/24/2022 CMP(C OMPRE HENSI VE METAB OLIC PANEL ) bilirubin, total 0.4 mg/dL 0.2-1. 2 Not Available [facility] (Lab) [address], [place], [address], 07/30/2022 18:00:33 07/24/19 23 07/24/2022 VITAM IN D, 25-OH (TOTA L D2/D3 ) vitamin D, 25-hydroxy, total 44.3 NG/mL 30.0-1 00.0 Sugge stive of Defic iency : <20 ng/mL Sugge stive of Insuf ficie ncy: 20-29 ng/mL Sugge stive of Suffi cienc y: 30-10 0 ng/mL Sugge stive of Toxic ity: >150 ng/mL Not Available [facility] (Lab) [address] [facility], [place], [address], 07/30/2022 18:00:33 07/24/19 23 07/24/2022 ESTRA DIOL estradiol 52.5 pg/mL This assay was perfo rmed using [employer] Cor[employer] ratio n reage nts and test kits. Value s obtai mike with other assay metho ds or kits canno t be used inter lovett eably . Femal e Estra diol Range s: Folli cular phase 12.4- 233 pg/mL Ovula tion phase 41.0- 398 pg/mL Lutea l phase 22.3- 341 pg/mL Postm enopa usal< 5-138 pg/mL Healt hy Pregn ant Women 1st Trime ster1 54-32 43 pg/mL 2nd Trime ster1 561-2 1280 pg/mL 3rd Trime ster8 525-> 18817 pg/mL Not Available [facility] (Lab) [address], [place], [address], 07/30/2022 18:00:34 07/24/19 23 07/24/2022 PROGE STERO NE progesterone 0.52 NG/mL This assay was perfo rmed using [employer] ratio n reage nts and test kits. Value s obtai mike with other assay metho ds or kits canno t be used inter lovett eably . Femal e Proge stero ne Range s: Folli cular phase 0.06- 0.89 ng/mL Ovula tion phase 0.12- 12.00 ng/mL Lutea l phase 1.83- 23.90 ng/mL Postm enopa usal< 0.05- 0.13 ng/mL Healt hy Pregn ant Women 1st Trime ster1 1.0-4 4.30 2nd Trime ster2 5.40- 83.30 3rd Trime ster5 8.70- 214.0 0 Not Available [facility] (Lab) [address] [facility], [place], [address], 07/30/2022 18:00:34 07/24/19 23 07/24/2022 TESTO STERO NE, FREE( DIALY SIS) AND TOTAL (LC/M S/MS) testosterone , total 32 NG/dL 2-45 For addit ional infor jakob banda e refer to http: //[facility].que stdia gnost ics.c om/fa q/Tot alTamanda Nelson [facility] (This link is being provi ded for infor jami barry/ educwinifred onofrevito l purpo ses only. ) This test was devel oped and its sachin tical perfo rmanc e reji cteri stics have been deter mined by [facility]. It has not been clear ed or appro diana by the FDA. This assay has been valid ated pursu ant to the CLIA regul ation s and is used for clini sonali purpo ses. Not Available [facility] (Lab) [address] [facility], [place], [address], 07/30/2022 18:00:35 07/24/19 23 07/24/2022 TESTO STERO NE, FREE( DIALY SIS) AND TOTAL (LC/M S/MS) testosterone , free 3.2 pg/mL 0.1-6. 4 This test was devel oped and its sachin tical perfo rmanc e reji cteri stics have been deter mined by [facility]. It has not been clear ed or appro diana by the FDA. This assay has been valid ated pursu ant to the CLIA regul ation s and is used for clini sonali purpo ses. Perfo rming Organ izati on Infor matvincent n: Site ID: [id number] Name: [facility]-Isaias broderick [place] Addre ss: [address] [place] [address] Direc tor: Davy huerta M.D. Not Available [facility] (Lab) [address], [place], [address], 07/30/2022 18:00:35 05/14/20 23 05/14/2023 HEMOG LOBIN A1C hemoglobin A1C 5.8 % 0-5.6 high The Ameri can Diabe jenny Assoc iatio n recom mends that a prima ry goal of thera py shoul d be a HBA1C of < 7% and that physi cians shoul d reeva luate the treat ment regim en in patie nts with HBA1C value s consi stent ly > 8%. <5.7% Radha l 5.7 - 6.4% Incre ased risk for diabe jenny >=6.5 % Diagn ostic of diabe jenny <7.0% Goal of thera py >8.0% Actio n sugge sted Not Available [facility] (Lab) [address], [place], [address], 05/15/2023 06:35:36 09/17/19 24 09/17/2023 VITAM IN D, 25-OH (TOTA L D2/D3 ) vitamin D, 25-hydroxy, total 41.3 NG/mL 30.0-1 00.0 Sugge stive of Defic iency : <20 ng/mL Sugge stive of Insuf ficie ncy: 20-29 ng/mL Sugge stive of Suffi cienc y: 30-10 0 ng/mL Sugge stive of Toxic ity: >150 ng/mL Not Available [facility] (Lab) [address], [place], [address], 09/18/2023 03:39:56 09/17/19 24 09/17/2023 CBC W/DIF F WBC 4.6 10'3/ uL 3.5-10 .5 Not Available [facility] (Lab) [address], [place], [address], 09/24/2023 01:09:45 09/17/19 24 09/17/2023 CBC W/DIF F RBC 4.71 10'6/ uL (based on docume nted legal sex) 3.80-5 .20 Not Available [facility] (Lab) [address], [place], [address], 09/24/2023 01:09:45 09/17/19 24 09/17/2023 CBC W/DIF F HGB 13.3 g/dL (based on docume nted legal sex) 11.6-1 5.4 Not Available [facility] (Lab) [address] [place], [address], 09/24/2023 01:09:45 09/17/19 24 09/17/2023 CBC W/DIF F HCT 42.9 % (based on docume nted legal sex) 34.0-4 5.0 Not Available [facility] (Lab) [address], [place], [address], 09/24/2023 01:09:45 09/17/19 24 09/17/2023 CBC W/DIF F MCV 91.1 fL 80.0-9 9.0 Not Available [facility] (Lab) [address] [place], [address], 09/24/2023 01:09:45 09/17/19 24 09/17/2023 CBC W/DIF F MCH 28.2 pg 27.0-3 4.0 Not Available [facility] (Lab) [address] [place], [address], 09/24/2023 01:09:45 09/17/19 24 09/17/2023 CBC W/DIF F MCHC 31.0 g/dL 32.0-3 5.5 low Not Available [facility] (Lab) [address], [place], [address], 09/24/2023 01:09:45 09/17/19 24 09/17/2023 CBC W/DIF F RDW 14.0 % 11.0-1 5.0 Not Available [facility] (Lab) [address], [place], [address], 09/24/2023 01:09:45 09/17/19 24 09/17/2023 CBC W/DIF F plt 297 10'3/ uL 150-40 0 Not Available [facility] (Lab) [address], [place], [address], 09/24/2023 01:09:45 09/17/19 24 09/17/2023 CBC W/DIF F MPV 10.9 fL 8.8-12 .1 Not Available [facility] (Lab) [address], [place], [address], 09/24/2023 01:09:45 09/17/19 24 09/17/2023 CBC W/DIF F NRBC's 0.0 % 0.0 Not Available [facility] (Lab) [address], [place], [address], 09/24/2023 01:09:45 09/17/19 24 09/17/2023 CBC W/DIF F absolute NRBCs 0.0 10'3/ uL no refere nce range establ ished Not Available [facility] (Lab) [address] [place], [address], 09/24/2023 01:09:45 09/17/19 24 09/17/2023 CBC W/DIF F neutrophils 53.9 % 34.0-7 3.0 Not Available [facility] (Lab) [address], [place], [address], 09/24/2023 01:09:45 09/17/19 24 09/17/2023 CBC W/DIF F lymphocytes 36.1 % 15.0-5 0.0 Not Available [facility] (Lab) [address] [facility], [place], [address], 09/24/2023 01:09:45 09/17/19 24 09/17/2023 CBC W/DIF F monocytes 7.4 % 1.0-15 .0 Not Available [facility] (Lab) [address] [facility], [place], [address], 09/24/2023 01:09:45 09/17/19 24 09/17/2023 CBC W/DIF F eosinophils 2.0 % 0.0-8. 0 Not Available [facility] (Lab) [address] [facility], [place], [address], 09/24/2023 01:09:45 09/17/19 24 09/17/2023 CBC W/DIF F basophils 0.4 % 0.0-2. 0 Not Available [facility] (Lab) [address] [facility], [place], [address], 09/24/2023 01:09:45 09/17/19 24 09/17/2023 CBC W/DIF F immature granulocytes 0.2 % no define d refere nce range Not Available [facility] (Lab) [address] [facility], [place], [address], 09/24/2023 01:09:45 09/17/19 24 09/17/2023 CBC W/DIF F absolute neutrophils 2.5 10'3/ uL 1.5-8. 0 Not Available [facility] (Lab) [address] [facility], [place], [address], 09/24/2023 01:09:45 09/17/19 24 09/17/2023 CBC W/DIF F absolute lymphocytes 1.7 10'3/ uL 1.0-4. 0 Not Available [facility] (Lab) [address] [facility], [place], [address], 09/24/2023 01:09:45 09/17/19 24 09/17/2023 CBC W/DIF F absolute monocytes 0.3 10'3/ uL 0.2-1. 0 Not Available [facility] (Lab) [address] [facility], [place], [address], 09/24/2023 01:09:45 09/17/19 24 09/17/2023 CBC W/DIF F absolute eosinophils 0.1 10'3/ uL 0.0-0. 6 Not Available [facility] (Lab) [address] [facility], [place], [address], 09/24/2023 01:09:45 09/17/19 24 09/17/2023 CBC W/DIF F absolute basophils 0.0 10'3/ uL 0.0-0. 3 Not Available [facility] (Lab) [address] [facility] [facility], [place], [address], 09/24/2023 01:09:45 09/17/1909/17/2023 CBC W/DIF F absolute immature granulocytes 0.0 10'3/ uL 0.00-0 .10 2:16 AM: P indic ates parti al resul ts on a panel have been relea sed. Addit ional resul ts will follo w. 2:17 AM: This resul t has been final verif ied. No addit ional or lovett ed resul ts are expec shannon. Not Available [facility] (Lab) [address] [facility], [place], [address], 09/24/2023 01:09:45 09/17/1909/17/2023 CRP, HIGH SENSI TIVIT Y (HSCR P) C-reactive protein, high sensitivity 0.53 mg/L 0.00-3 .00 Risk Accor ding To AHA/C DC Guide lines : < 1.0 mg/L Low Cardi ovasc ular Risk 1.0-3 .0 mg/L [place] ge Cardi ovasc ular Risk > 3.0 mg/L High Cardi ovasc ular Risk > 10.0 mg/L Acute Infla mmati on Not Available [facility] (Lab) [address] [place], [address], 09/24/2023 01:09:46 09/17/19 24 09/17/2023 LIPID PANEL ,AMA (LDL- CALC) total cholesterol 210 mg/dL 0-199 high Not Available [facility] (Lab) [address] [place], [address], 09/24/2023 01:09:46 09/17/19 24 09/17/2023 LIPID PANEL ,AMA (LDL- CALC) triglyceride s 70 mg/dL 0-150 NCEP Refer ence Value s for Trigl yceri cary: Radha l: <150 mg/dL Bordomitila rline High: 150 - 199 mg/dL High: 200 - 499 mg/dL Very High: >/= 500 mg/dL Not Available [facility] (Lab) [address] [place], [address], 09/24/2023 01:09:46 09/17/19 24 09/17/2023 LIPID PANEL ,AMA (LDL- CALC) HDL cholesterol 90 mg/dL >40 Not Available [facility] (Lab) [address] [place], [address], 09/24/2023 01:09:46 09/17/19 24 09/17/2023 LIPID PANEL ,AMA (LDL- CALC) LDL cholesterol 104 mg/dL 0-99 high Cutof f value s recom sapna d by the Natio nal Mile stero l Educa tion Progr am: KAPIL ABLE: Mile stero l <200 mg/dL LDL <100 mg/dL BORDE RLINE : Mile stero l 200-2 39 mg/dL LDL 101-1 59 mg/dL HIGHE R RISK: Mile stero l >240 mg/dL LDL >160 mg/dL , HDL <40 mg/dL Not Available [facility] (Lab) [address], [place], [address], 09/24/2023 01:09:46 09/17/1909/17/2023 LIPID PANEL ,AMA (LDL- CALC) non-HDL cholesterol 120 mg/dL no refere nce range A reaso nable goal for non-H DL mile stero l is one that is 30 mg/dL highe r than the LDL mile stero l goal. Not Available [facility] (Lab) [address] [facility], [place], [address], 09/24/2023 01:09:46 09/17/1909/17/2023 LIPID PANEL ,AMA (LDL- CALC) chol/HDL ratio 2.3 . 0.0-5. 0 On October 06, 2022, [facility] labor atori es lovett ed the equat ion for calcu latin g estim ated low-d ensit y lipop rotei n-cho leste rol (LDL- C) from the Fried mio equat ion to the Liyah n/Hop kins equat ion. This new equat ion is only valid for lipid panel s with trigl yceri cary < 400 mg/dL . Luzmariai es arely damon ed that this new equat ion will impro ve the accur acy of LDL-C , espec ially in scena bonner when LDL-C derek ntrat ions are relat ively low (< 100 mg/dL ), trigl yceri cary are eleva shannon, or patie nt is non-f astin g. Refer ences : - Liyah mills, Marcos Palacio, Rashel Vargas , Mohvince aquino, Ken Cummings, Ken goodman, Levi rodriguez , and Jones Milian . 2013. Comp ariso n of a Novel Metho d vs the Fried mio Equat ion for Estim ating Low-D ensit y Lipop rotei n Mile stero l Level s from the Stand nakia Lipid Profi le. MICHAEL: The Journ al of the Ameri can Medic al Assoc iatio n 310 (19): 2060- . - Cassie frederick V, Suad J, Arianne ar A, Day M, Mehrdad e R, Milo frederick E, Evonne rodriguez RS, Maicol SR, Liyah n SS. Fast ing Versu s Nonfa sting and Low-D ensit y Lipop rotei n Mile stero l Accur acy. Circu latio n. 2017Jun 15;137 (1):1 0-19. Not Available [facility] (Lab) [address] [facility], [place], [address], 09/24/2023 01:09:46 09/17/19 24 09/17/2023 CMP(C OMPRE HENSI VE METAB OLIC PANEL ) sodium 138 mmol/ L 133-14 6 Not Available [facility] (Lab) [address] [facility], [place], [address], 09/24/2023 01:09:46 09/17/19 24 09/17/2023 CMP(C OMPRE HENSI VE METAB OLIC PANEL ) potassium 4.0 mmol/ L 3.5-5. 1 Not Available [facility] (Lab) [address] [place], [address], 09/24/2023 01:09:46 09/17/19 24 09/17/2023 CMP(C OMPRE HENSI VE METAB OLIC PANEL ) chloride 103 mmol/ L 98-107 Not Available [facility] (Lab) [address] [place], [address], 09/24/2023 01:09:46 09/17/19 24 09/17/2023 CMP(C OMPRE HENSI VE METAB OLIC PANEL ) carbon dioxide 28 mmol/ L 21-31 Not Available [facility] (Lab) [address] [place], [address], 09/24/2023 01:09:46 09/17/19 24 09/17/2023 CMP(C OMPRE HENSI VE METAB OLIC PANEL ) anion gap 7 mmol/ L 4-13 Not Available [facility] (Lab) [address] [facility], [place], [address], 09/24/2023 01:09:46 09/17/19 24 09/17/2023 CMP(C OMPRE HENSI VE METAB OLIC PANEL ) blood urea nitrogen 9 mg/dL 7-25 Not Available [facility] (Lab) [address] [facility], [place], [address], 09/24/2023 01:09:46 09/17/19 24 09/17/2023 CMP(C OMPRE HENSI VE METAB OLIC PANEL ) creatinine 0.57 mg/dL 0.60-1 .30 low Not Available [facility] (Lab) [address] [facility], [place], [address], 09/24/2023 01:09:46 09/17/19 24 09/17/2023 CMP(C OMPRE HENSI VE METAB OLIC PANEL ) egfrcr (CKD-epi 2020) >90 mL/mi n/1.7 3_m2 >=60 Not Available [facility] (Lab) [address] [facility], [place], [address], 09/24/2023 01:09:46 09/17/19 24 09/17/2023 CMP(C OMPRE HENSI VE METAB OLIC PANEL ) calcium 9.4 mg/dL 8.3-10 .5 Not Available [facility] (Lab) [address] [facility], [place], [address], 09/24/2023 01:09:46 09/17/19 24 09/17/2023 CMP(C OMPRE HENSI VE METAB OLIC PANEL ) glucose 97 mg/dL 70-100 Not Available [facility] (Lab) [address] [facility], [place], [address], 09/24/2023 01:09:46 09/17/19 24 09/17/2023 CMP(C OMPRE HENSI VE METAB OLIC PANEL ) protein, total 7.4 g/dL 6.4-8. 3 Not Available [facility] (Lab) [address] [facility], [place], [address], 09/24/2023 01:09:46 09/17/19 24 09/17/2023 CMP(C OMPRE HENSI VE METAB OLIC PANEL ) albumin 4.8 g/dL 3.5-5. 0 Not Available [facility] (Lab) [address] [facility] [facility], [place], [address], 09/24/2023 01:09:46 09/17/19 24 09/17/2023 CMP(C OMPRE HENSI VE METAB OLIC PANEL ) ALT 12 units /L 9-43 Not Available [facility] (Lab) [address] [facility], [place], [address], 09/24/2023 01:09:46 09/17/19 24 09/17/2023 CMP(C OMPRE HENSI VE METAB OLIC PANEL ) alkaline phosphatase 70 units /L 34-104 Not Available [facility] (Lab) [address] [facility], [place], [address], 09/24/2023 01:09:46 09/17/19 24 09/17/2023 CMP(C OMPRE HENSI VE METAB OLIC PANEL ) AST 18 units /L 13-39 Not Available [facility] (Lab) [address] [facility], [place], [address], 09/24/2023 01:09:46 09/17/19 24 09/17/2023 CMP(C OMPRE HENSI VE METAB OLIC PANEL ) bilirubin, total 0.4 mg/dL 0.2-1. 2 Not Available [facility] (Lab) [address] [place], [address], 09/24/2023 01:09:46 09/17/19 24 09/17/2023 DHEA SULFA TE DHEA-sulfate 109 ug/dL Femal e Range s Age(y ) Range (ug/d L) 10-15 34-28 0 15-20 65-36 8 20-25 148-4 07 25-35 99-34 0 35-45 61-33 7 45-55 35-25 6 55-65 19-20 5 65-75 9-246 > 75 12-15 4 Not Available [facility] (Lab) [address], [place], [address], 09/24/2023 01:09:47 09/17/19 24 09/17/2023 HEMOG LOBIN A1C hemoglobin A1C 5.8 % 0-5.6 high The Ameri can Diabe jenny Assoc iatio n recom mends that a prima ry goal of thera py shoul d be a HBA1C of < 7% and that physi cians shoul d reeva luate the treat ment regim en in patie nts with HBA1C value s consi stent ly > 8%. <5.7% Radha l 5.7 - 6.4% Incre ased risk for diabe jenny >=6.5 % Diagn ostic of diabe jenny <7.0% Goal of thera py >8.0% Actio n sugge sted Not Available [facility] (Lab) [address] [facility], [place], [address], 09/24/2023 01:09:47 09/17/19 24 09/17/2023 ESTRA DIOL estradiol 45.9 pg/mL This assay was perfo rmed using [employer] ratio n reage nts and test kits. Value s obtai mike with other assay metho ds or kits canno t be used inter lovett eably . Femal e Estra diol Range s: Folli cular phasE 12.4- 233 pg/mL Ovula tion phasE 41.0- 398 pg/mL Lutea l phasE 22.3- 341 pg/mL Postm enopa usal <5-13 8 pg/mL Healt hy Pregn ant Women 1st Trime ster 154-3 243 pg/mL 2nd Trime ster 1561- 11515 pg/mL 3rd Trime ster 8525- >3000 0 pg/mL Not Available [facility] (Lab) [address] , [place], [address], 09/24/2023 01:09:48 09/17/19 24 09/17/2023 PROGE STERO NE progesterone 0.48 NG/mL This assay was perfo rmed using [employer] ratio n reage nts and test kits. Value s obtai mike with other assay metho ds or kits canno t be used inter lovett eably . Femal e Proge stero ne Range s: Folli cular phasE 0.06- 0.89 ng/mL Ovula tion phasE 0.12- 12.00 ng/mL Lutea l phasE 1.83- 23.90 ng/mL Postm enopa usal <0.05 -0.13 ng/mL Healt hy Pregn ant Women 1st Trime ster 11.0- 44.30 2nd Trime ster 25.40 -83.3 0 3rd Trime ster 58.70 -214. 00 Not Available [facility] (Lab) [address] , [place], [address], 09/24/2023 01:09:48 09/17/1909/17/2023 LYME DISEA SE IGG/I GM, LIZANDRO RN BLOT (MDL) lyme disease IgG/IgM by western blot IgGCDC Neg IgGAlt Neg IgMCDC Neg IgMAlt Neg Serum -1 Not Indic ated IgGCD C Neg IgGAl t Neg IgMCD C Neg IgMAl t Neg Ig IgM: No bands prese nt. . Medic al Diagn ostic Labor atori [facility] [address] Lab Direc tor: Dominguez Strong M.D. Not Available [facility] (Lab) [address] , [place], [address], 09/24/2023 01:09:48 09/17/19 24 09/17/2023 TESTO STERO NE, FREE, DIREC T WITH TOTAL testosterone , serum 12 NG/dL 3- Not Available [facility] (Lab) [address], [place], [address], 09/24/2023 01:09:49 09/17/19 24 09/17/2023 TESTO STERO NE, FREE, DIREC T WITH TOTAL free testosterone (direct) 1.0 pg/mL 0.0-4. 2 Perfo rmed at: 01 - [facility] [place] [address] [facility], [place] [address] Lab Direc tor: Preston kc PhD, Phone : [phone] Perfo rmed at: 02 - [facility] [place] [address] [facility] , [place] [address] Lab Direc tor: Cherie haddad MD, Phone : [phone] Not Available [facility] (Lab) [address], [place], [address], 09/24/2023 01:09:49 10/14/1910/13/2024 CBC W/DIF F WBC 4.8 10'3/ uL 3.5-10 .5 Not Available [facility] (Lab) [address], [place], [address], 10/18/2024 03:11:23 10/14/1910/13/2024 CBC W/DIF F RBC 4.55 10'6/ uL (based on docume nted legal sex) 3.80-5 .20 Not Available [facility] (Lab) [address], [place], [address], 10/18/2024 03:11:23 10/14/19 25 10/13/2024 CBC W/DIF F HGB 12.8 g/dL (based on docume nted legal sex) 11.6-1 5.4 Not Available [facility] (Lab) [address], [place], [address], 10/18/2024 03:11:23 10/14/1910/13/2024 CBC W/DIF F HCT 40.3 % (based on docume nted legal sex) 34.0-4 5.0 Not Available [facility] (Lab) [address], [place], [address], 10/18/2024 03:11:23 10/14/19 25 10/13/2024 CBC W/DIF F MCV 88.6 fL 80.0-9 9.0 Not Available [facility] (Lab) [address] [facility], [place], [address], 10/18/2024 03:11:23 10/14/19 25 10/13/2024 CBC W/DIF F MCH 28.1 pg 27.0-3 4.0 Not Available [facility] (Lab) [address] [facility], [place], [address], 10/18/2024 03:11:23 10/14/19 25 10/13/2024 CBC W/DIF F MCHC 31.8 g/dL 32.0-3 5.5 low Not Available [facility] (Lab) [address] [facility], [place], [address], 10/18/2024 03:11:23 10/14/19 25 10/13/2024 CBC W/DIF F RDW 13.4 % 11.0-1 5.0 Not Available [facility] (Lab) [address] [facility] [facility], [place], [address], 10/18/2024 03:11:23 10/14/19 25 10/13/2024 CBC W/DIF F plt 259 10'3/ uL 150-40 0 Not Available [facility] (Lab) [address] [facility], [place], [address], 10/18/2024 03:11:23 10/14/19 25 10/13/2024 CBC W/DIF F MPV 10.8 fL 8.8-12 .1 Not Available [facility] (Lab) [address] [facility], [place], [address], 10/18/2024 03:11:23 10/14/19 25 10/13/2024 CBC W/DIF F neutrophils 54.4 % 34.0-7 3.0 Not Available [facility] (Lab) [address] [place], [address], 10/18/2024 03:11:23 10/14/19 25 10/13/2024 CBC W/DIF F lymphocytes 38.4 % 15.0-5 0.0 Not Available [facility] (Lab) [address] [facility], [place], [address], 10/18/2024 03:11:23 10/14/19 25 10/13/2024 CBC W/DIF F monocytes 5.4 % 1.0-15 .0 Not Available [facility] (Lab) [address] [facility], [place], [address], 10/18/2024 03:11:23 10/14/19 25 10/13/2024 CBC W/DIF F eosinophils 1.2 % 0.0-8. 0 Not Available [facility] (Lab) [address] [facility], [place], [address], 10/18/2024 03:11:23 10/14/19 25 10/13/2024 CBC W/DIF F basophils 0.4 % 0.0-2. 0 Not Available [facility] (Lab) [address] [facility], [place], [address], 10/18/2024 03:11:23 10/14/1910/13/2024 CBC W/DIF F immature granulocytes 0.2 % no define d refere nce range Immat ure Granu locyt es (IG) repre sents autom ated enume ratio n of Metam yeloc ytes, Myelo cytes and Promy elocy jenny when IG is < 5%. Blast s are not inclu ded in IG and repor shannon separ ately if prese nt. Not Available [facility] (Lab) [address] [facility], [place], [address], 10/18/2024 03:11:23 10/14/19 25 10/13/2024 CBC W/DIF F absolute neutrophils 2.6 10'3/ uL 1.5-8. 0 Not Available [facility] (Lab) [address] [place], [address], 10/18/2024 03:11:23 10/14/19 25 10/13/2024 CBC W/DIF F absolute lymphocytes 1.9 10'3/ uL 1.0-4. 0 Not Available [facility] (Lab) [address] [facility], [place], [address], 10/18/2024 03:11:23 10/14/19 25 10/13/2024 CBC W/DIF F absolute monocytes 0.3 10'3/ uL 0.2-1. 0 Not Available [facility] (Lab) [address] [facility], [place], [address], 10/18/2024 03:11:23 10/14/19 25 10/13/2024 CBC W/DIF F absolute eosinophils 0.1 10'3/ uL 0.0-0. 6 Not Available [facility] (Lab) [address] [facility], [place], [address], 10/18/2024 03:11:23 10/14/19 25 10/13/2024 CBC W/DIF F absolute basophils 0.0 10'3/ uL 0.0-0. 3 Not Available [facility] (Lab) [address] [facility], [place], [address], 10/18/2024 03:11:23 10/14/19 25 10/13/2024 CBC W/DIF F absolute immature granulocytes 0.0 10'3/ uL 0.00-0 .10 Refer ence range s for nonbi nary/ inter sex or unspe cifie d gende r patie nts have not been estab lishe d. Pleas e refer to the follo wing table for range s estab lishe d for cisge nder patie nts and evalu ate in the clini sonali beltran xt of the indiv idual patie nt: [email or web address] :[email or web address] [email or web address] book. nm.or g/gen derx Not Available [facility] (Lab) [address] [facility], [place], [address], 10/18/2024 03:11:23 05/02/20 25 10/13/2024 SHEREEN TIN / IRON / TRANS SHEREEN N / TIBC iron 120 ug/dL 40-170 Not Available [facility] (Lab) [address], [place], [address], 10/18/2024 03:11:23 10/14/19 25 10/13/2024 SHEREEN TIN / IRON / TRANS SHEREEN N / TIBC transferrin 239 mg/dL 200-36 0 Not Available [facility] (Lab) [address] , [place], [address], 10/18/2024 03:11:23 10/14/19 25 10/13/2024 SHEREEN TIN / IRON / TRANS SHEREEN N / TIBC ferritin 89.7 NG/mL 8.0-25 2.0 Not Available [facility] (Lab) [address], [place], [address], 10/18/2024 03:11:23 10/14/19 25 10/13/2024 SHEREEN TIN / IRON / TRANS SHEREEN N / TIBC TIBC 335 ug/dL 250-45 0 Not Available [facility] (Lab) [address], [place], [address], 10/18/2024 03:11:23 10/14/19 25 10/13/2024 SHEREEN TIN / IRON / TRANS SHEREEN N / TIBC iron saturation 36 % 20-55 Not Available [facility] (Lab) [address] [place], [address], 10/18/2024 03:11:23 10/14/19 25 10/13/2024 DHEA SULFA TE DHEA-sulfate 63 ug/dL Femal e Range s Age(y ) Range (ug/d L) 10-15 34-28 0 15-20 65-36 8 20-25 148-4 07 25-35 99-34 0 35-45 61-33 7 45-55 35-25 6 55-65 19-20 5 65-75 9-246 > 75 12-15 4 Not Available [facility] (Lab) [address] [place], [address], 10/18/2024 03:11:24 10/14/19 25 10/13/2024 LDH, SERUM LDH 139 units /L 140-27 1 low Not Available [facility] (Lab) [address], [place], [address], 10/18/2024 03:11:24 10/14/19 25 10/13/2024 CRP, HIGH SENSI TIVIT Y (HSCR P) C-reactive protein, high sensitivity 1.24 mg/L 0.00-3 .00 Risk Accor ding To AHA/C DC Guide lines : < 1.0 mg/L Low Cardi ovasc ular Risk 1.0-3 .0 mg/L [place] ge Cardi ovasc ular Risk > 3.0 mg/L High Cardi ovasc ular Risk > 10.0 mg/L Acute Infla mmati on Not Available [facility] (Lab) [address], [place], [address], 10/18/2024 03:11:24 10/14/19 25 10/13/2024 LIPID PANEL ,AMA (LDL- CALC) total cholesterol 176 mg/dL 0-199 Not Available [facility] (Lab) [address] [place], [address], 10/18/2024 03:11:25 10/14/19 25 10/13/2024 LIPID PANEL ,AMA (LDL- CALC) triglyceride s 43 mg/dL 0-150 NCEP Refer ence Value s for Trigl yceri cary: Radha l: <150 mg/dL Borde rline High: 150 - 199 mg/dL High: 200 - 499 mg/dL Very High: >/= 500 mg/dL Not Available [facility] (Lab) [address] [place], [address], 10/18/2024 03:11:25 10/14/19 25 10/13/2024 LIPID PANEL ,AMA (LDL- CALC) HDL cholesterol 76 mg/dL >40 Not Available [facility] (Lab) [address] [place], [address], 10/18/2024 03:11:25 10/14/1910/13/2024 LIPID PANEL ,AMA (LDL- CALC) LDL cholesterol 87 mg/dL 0-99 Cutof f value s recom sapna d by the Natio nal Mile stero l Educa tion Progr am: KAPIL ABLE: Mile stero l <200 mg/dL LDL <100 mg/dL BORDE RLINE : Mile stero l 200-2 39 mg/dL LDL 101-1 59 mg/dL HIGHE R RISK: Mile stero l >240 mg/dL LDL >160 mg/dL , HDL <40 mg/dL Not Available [facility] (Lab) [address], [place], [address], 10/18/2024 03:11:25 10/14/1910/13/2024 LIPID PANEL ,AMA (LDL- CALC) non-HDL cholesterol 100 mg/dL no refere nce range A reaso nable goal for non-H DL mile stero l is one that is 30 mg/dL highe r than the LDL mile stero l goal. Not Available [facility] (Lab) [address], [place], [address], 10/18/2024 03:11:25 10/14/1910/13/2024 LIPID PANEL ,AMA (LDL- CALC) chol/HDL ratio 2.3 . 0.0-5. 0 On October 06, 2022, [facility] labor atori es lovett ed the equat ion for calcu latin g estim ated low-d ensit y lipop rotei n-cho leste rol (LDL- C) from the Fried moi equat ion to the Liyah n/Teagan sanford equat ion. This new equat ion is only valid for lipid panel s with trigl yceri cary < 400 mg/dL . Studi es arely demon strat ed that this new equat ion will impro ve the accur acy of LDL-C , espec ially in scena bonner when LDL-C derek ntrat ions are relat ively low (< 100 mg/dL ), trigl yceri cary are eleva shannon, or patie nt is non-f astin g. Refer ences : - Liyah mills, Marcos Palacio, Rashel Vargas , Reinier aquino, Ken Cummings, Ken goodman, Levi [facility] , and Jones Milian . 2013. Comp ariso n of a Novel Metho d vs the Fried mio Equat ion for Estim ating Low-D ensit y Lipop rotei n Mile stero l Level s from the Stand nakia Lipid Profyamil mckee. MICHAEL: The Journ al of the Ameri can Medic al Assoc iatio n 310 (19): 2060- . - Cassie frederick V, Suad J, Arianne frederick A, Day M, Mehrdad cardona R, Milo frederick E, Evonne [facility] RS, Maicol SR, Liyah mills SS. Fast ing Versu s Nonfa sting and Low-D ensit y Lipop rotei n Mile stero l Accur acy. Circu latio n. 2017Jun 15;137 (1):1 0-19. Not Available [facility] (Lab) [address] [place], [address], 10/18/2024 03:11:25 10/14/19 25 10/13/2024 CMP(C OMPRE HENSI VE METAB OLIC PANEL ) sodium 136 mmol/ L 133-14 6 Not Available [facility] (Lab) [address] [place], [address], 10/18/2024 03:11:25 10/14/19 25 10/13/2024 CMP(C OMPRE HENSI VE METAB OLIC PANEL ) potassium 4.1 mmol/ L 3.5-5. 1 Not Available [facility] (Lab) [address] [place], [address], 10/18/2024 03:11:25 10/14/19 25 10/13/2024 CMP(C OMPRE HENSI VE METAB OLIC PANEL ) chloride 103 mmol/ L 98-107 Not Available [facility] (Lab) [address] [facility], [place], [address], 10/18/2024 03:11:25 10/14/19 25 10/13/2024 CMP(C OMPRE HENSI VE METAB OLIC PANEL ) carbon dioxide 23 mmol/ L 21-31 Not Available [facility] (Lab) [address] [facility], [place], [address], 10/18/2024 03:11:25 10/14/19 25 10/13/2024 CMP(C OMPRE HENSI VE METAB OLIC PANEL ) anion gap 10 mmol/ L 4-13 Not Available [facility] (Lab) [address] [facility], [place], [address], 10/18/2024 03:11:25 10/14/19 25 10/13/2024 CMP(C OMPRE HENSI VE METAB OLIC PANEL ) blood urea nitrogen 11 mg/dL 7-25 Not Available [facility] (Lab) [address] [facility], [place], [address], 10/18/2024 03:11:25 10/14/19 25 10/13/2024 CMP(C OMPRE HENSI VE METAB OLIC PANEL ) creatinine 0.57 mg/dL 0.60-1 .30 low Not Available [facility] (Lab) [address] [facility], [place], [address], 10/18/2024 03:11:25 10/14/19 25 10/13/2024 CMP(C OMPRE HENSI VE METAB OLIC PANEL ) egfrcr (CKD-epi 2020) >90 mL/mi n/1.7 3_m2 >=60 Not Available [facility] (Lab) [address] [facility], [place], [address], 10/18/2024 03:11:25 10/14/19 25 10/13/2024 CMP(C OMPRE HENSI VE METAB OLIC PANEL ) calcium 9.1 mg/dL 8.3-10 .5 Not Available [facility] (Lab) [address] [facility], [place], [address], 10/18/2024 03:11:25 10/14/19 25 10/13/2024 CMP(C OMPRE HENSI VE METAB OLIC PANEL ) glucose 91 mg/dL 70-100 Not Available [facility] (Lab) [address] [facility], [place], [address], 10/18/2024 03:11:25 10/14/19 25 10/13/2024 CMP(C OMPRE HENSI VE METAB OLIC PANEL ) protein, total 6.9 g/dL 6.4-8. 3 Not Available [facility] (Lab) [address] [facility], [place], [address], 10/18/2024 03:11:25 10/14/19 25 10/13/2024 CMP(C OMPRE HENSI VE METAB OLIC PANEL ) albumin 4.3 g/dL 3.5-5. 0 Not Available [facility] (Lab) [address] [facility], [place], [address], 10/18/2024 03:11:25 10/14/19 25 10/13/2024 CMP(C OMPRE HENSI VE METAB OLIC PANEL ) ALT 11 units /L 9-43 Not Available [facility] (Lab) [address] [facility], [place], [address], 10/18/2024 03:11:25 10/14/19 25 10/13/2024 CMP(C OMPRE HENSI VE METAB OLIC PANEL ) alkaline phosphatase 78 units /L 34-104 Not Available [facility] (Lab) [address] [place], [address], 10/18/2024 03:11:25 10/14/19 25 10/13/2024 CMP(C OMPRE HENSI VE METAB OLIC PANEL ) AST 18 units /L 13-39 Not Available [facility] (Lab) [address] [place], [address], 10/18/2024 03:11:10/14/1910/13/2024 CMP(C OMPRE HENSI VE METAB OLIC PANEL ) bilirubin, total 0.5 mg/dL 0.2-1. 2 Not Available [facility] (Lab) [address] [place], [address], 10/18/2024 03:11:10/14/1910/13/2024 SEDIM ENTAT ION RATE, ESR sedimentatio n rate 16 mm/ho ur (based on docume nted legal sex) 0-30 Not Available [facility] (Lab) [address] [place], [address], 10/18/2024 03:11:10/14/1910/13/2024 TSH TSH 2.16 uIU/m L 0.30-5 .33 Not Available [facility] (Lab) [address] [place], [address], 10/18/2024 03:11:10/14/1910/13/2024 T4 FREE T4, free 0.70 NG/dL 0.60-1 .40 This assay is susce ptibl e to inter feren ce from high level s of bioti n which may false ly eleva te resul ts. Pleas e corre late with clini sonali findi ngs. Not Available [facility] (Lab) [address] [place], [address], 10/18/2024 03:11:10/14/1910/13/2024 VITAM IN B12 / FOLAT E PANEL vitamin B12 405 pg/mL 180-91 4 Radha l Range : 180-9 14 pg/mL . Indet ermin ate Range : 145-1 80 pg/mL . Defic ient Range : <=145 pg/mL . Not Available [facility] (Lab) [address] [place], [address], 10/18/2024 03:11:26 10/14/1910/13/2024 VITAM IN B12 / FOLAT E PANEL folate, serum >20.0 NG/mL 6.0-20 .0 high Not Available [facility] (Lab) [address] [facility], [place], [address], 10/18/2024 03:11:26 10/14/19 25 10/13/2024 FREE T3 T3, free 2.43 pg/mL 2.00-4 .40 This assay is susce ptibl e to inter feren ce from high level s of bioti n which may false ly eleva te resul ts. Pleas e corre late with clini sonali findi ngs inclu ding TSH and FT4 resul ts. If clini hunter indic ated, Free T3 by Kirillil hank Castaneda sis LC/MS may be perfo rmed. Not Available [facility] (Lab) [address] [facility], [place], [address], 10/18/2024 03:11:26 10/14/19 25 10/13/2024 PROGE STERO NE progesterone 0.48 NG/mL This assay was perfo rmed using [employer] n reage nts and test kits. Value s obtai mike with other assay metho ds or kits canno t be used inter lovett kranthi . Femal e Proge stero ne Range s: Folli cular phase 0.06- 0.89 ng/mL Ovula tion phase 0.12- 12.00 ng/mL Lutea l phase 1.83- 23.90 ng/mL Postm enopa usal <0.05 -0.13 ng/mL Healt hy Pregn ant Women 1st Trime ster 11.0- 44.30 2nd Trime ster 25.40 -83.3 0 3rd Trime ster 58.70 -214. 00 Not Available [facility] (Lab) [address] [facility], [place], [address], 10/18/2024 03:11:27 10/14/19 25 10/13/2024 ESTRA DIOL estradiol 19.9 pg/mL This assay was perfo rmed using [employer] reage nts and test kits. Value s obtai mike with other assay metho ds or kits canno t be used inter lovett eably . Femal e Estra diol Range s: Folli cular phase 12.4- 233 pg/mL Ovula tion phase 41.0- 398 pg/mL Lutea l phase 22.3- 341 pg/mL Postm enopa usal <5-13 8 pg/mL Healt hy Pregn ant Women 1st Trime ster 154-3 243 pg/mL 2nd Trime ster 1561- 17011 pg/mL 3rd Trime ster 8525- >3000 0 pg/mL Not Available [facility] (Lab) [address] [facility], [place], [address], 10/18/2024 03:11:27 10/14/19 25 10/13/2024 RHEUM ATOID FACTO R (RF), QUANT ITATI VE rheumatoid factor, quantitative interpretati on Negati ve negati ve Not Available [facility] (Lab) [address] [place], [address], 10/18/2024 03:11:27 10/14/19 25 10/13/2024 RHEUM ATOID FACTO R (RF), QUANT ITATI VE rf, quantitation <10 IU/mL <=[address] [facility] (Lab) [address] [place], [address], 10/18/2024 03:11:27 10/14/19 25 10/13/2024 HEMOG LOBIN A1C hemoglobin A1C 5.8 % 4.0-5. 6 high The [facility] [facility] [employer]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 leans to get a bowl from the shelf, she will notice it. She had seen the myofascial therapist for this but didn't feel it was helpful. The pain has beenBand around the front and back. Now the pain is on the right and left and in the back. She does a lot of core strengthening exercises.Tinnitus is the same as it has been. Raz Ramirez MD [address] [place], [address], [facility] 11/09/2023 22:30:35 10/13/2024 text/html ROS as noted in the HPI Chhaya is here today for check up - She is dealing with more joint pain.Wrist pain. It started in the right and moved to the left. She is avoiding doing things. She feels she is losing strength. She will notice intermittent. Occassionally shooting pain. No numbness. She has to work to settle down to sleep becuase she can be in pain when trying to sleep. She will avoid doing certain things. Twisting can be a problem. She just got a wrist brace but hasn't tried it yet.She doesn't feel she has the level of energy she should. Left ear - tinnitus. She has an appointment with an income tax return preparer.She sleeps outside which is good. She wakes due to the dogs. She will wake 3 - 4 times in the night. Mood - good typically. aRz Ramirez MD [address] [facility], [place], [address], [place] [facility] 10/13/2024 18:45:40 OBGyn Episode No OBEpisode recorded.
--- OUTSIDE RECORDS SUMMARY | 2025-04-27 02:49 | XMS_ITS | Clinical Summary ---
[facility] Address [address] [place] [address] Care Team Providers Care Dress Shoe Inspector Name Role Phone Liam Cooney MD Unavailable [phone] Raz Ramirez MD Primary Care Provider [phone] Allergies No known active allergies Medications estradioL (CLIMARA) 0.0375 mg/[address] 1 patch on the skin 2 (two) times a week Active miSOPROStoL (CYTOTEC) 200 mcg tablet Insert 1 tablet vaginally at HS on 05-31-23 and Insert 1 tablet vaginally at HS on 06-01-23 2 tablet 3 Active UNABLE TO FIND Med Name: Progesterone 50mg under the tongue nightly Active acetylcysteine (NAC) 600 mg capsule Take by mouth Active magnesium glycinate 100 mg tablet Take by mouth Active bran/gum/fib/ce l/psyl/kelp/pec (FIBER 6 ORAL) Take by mouth A ctive UNABLE TO FIND Med Name: Methyl B Active lactobacillus combination no.4 (Probiotic) 3 billion cell capsule Take by mouth Active prasterone, dhea, (DHEA) 50 mg capsule Take by mouth Activ e traMADoL (ULTRAM) 50 mg tablet Take 1 tablet (50 mg total) by mouth every 8 (eight) hours as needed for pain for up to 5 days 15 tablet 5 Active Active Problems Problem Noted Date Diagnosed Date Arthritis of carpometacarpal (CMC) joint of both thumbs 02/01/2025 Assessment & Plan (02/01/2025 11:12 AM CDT): Injection done under ultrasound guidance as noted in the procedure note. Patient advised to watch for signs of infection or bleeding and go to the ER if any of these occur. I advised on crutches for three days followed by a 11 days of partial weight-bearing on crutches and then beginning physical therapy at the 2-3 week point. I will see them at the two week point to follow up. We will send them some medications for pain control that she may take for the first three days and after that they should use Tylenol as needed for pain control. Advised on judicious use of ice only to use this if it is absolutely necessary in for a short period of time. They should avoid any NSAIDs for six weeks after this procedure. Patient to call if there is any worsening or any abnormal in symptoms that they are concerned about. Physical therapy order was sent today to begin in the 2-3 week point to the PT of patient's choice. Endometrial polyp 06/02/2023 Postmenopausal bleeding 05/27/2023 Thickened endometrium 05/27/2023 Stenosis, cervix 05/27/2023 PMB (postmenopausal bleeding) 05/17/2023 Assessment & Plan (05/17/2023 1:53 PM E COMMERCE ANALYST): The patient presents today for evaluation of postmenopausal bleeding in the thickened endometrial stripe seen on ultrasound on May 04. We will follow up on Pap smear results. The endometrial biopsy was unable to be carried out subsequent to a stenotic cervix. I did discuss the plan of care with Dr. Cooney. The patient was offered to come back into the office following Cytotec placement to repeat an attempt at endometrial biopsy by Dr. Cooney, she was also offered to be scheduled for hysteroscopy D and C. The patient has elected to go forward with hysteroscopy D&C. She will be scheduled with Dr. Cooney for preoperative appointment. Questions were answered in detail. She will notify our office with any further questions or concerns. Resolved Problems Problem Noted Date Diagnosed Date Resolved Date Thickened endometrium 05/19/20232022 Encounters Date Type Department Care Team Description 02/02/2025 Documentation [facility] at [address] [place] [address] Karolina Huber MA 02/01/2025 10:45 AM CDT Office Visit [facility] at [address] [place] [address] Ulises Lawrence DO Arthritis of carpometacarpal (CMC) joint of both thumbs (Primary Dx) from Last 3 Months Surgical History Surgery Date Site/Laterality Comments CERVICAL CONE BIOPSY N/A in her 's MOHS SURGERY skin cancer from forehead and cheek HYSTEROSCOPY W/ ENDOMETRIAL ABLATION 06/02/2023 Medical History Medical History Date Comments Skin cancer Had MOHS procedu re forehead and cheek area Abnormal Pap smear of cervix Family History Medical History Relation Name Comments Heart disease Father Relation Name Status Comments Father Social History Tobacco Use Types Packs/Day Years Used Date Smoking Tobacco: Never Smokeless Tobacco: Never AUDIT-C Answer Date Recorded Frequency of Alcohol Consumption Not on file 05/27/2023 Q2: How many drinks containi ng alcohol do you have on a typical day when you are drinking? Patient does not drink Frequency of Binge Drinking Not on file 05/14 PHQ-2 Answer Date Recorded PHQ-2 Total Score (If total score is 3 or more points, staff should administer the PHQ-9) 0 05/17/2023 Personal Safety Answer Date Recorded Have you ever been in or are you currently in a harmful physical or emotional relationship or is someone making you feel afraid or unsafe? Denies 12/28/2023 Comments No Sex and Gender Information Value Date Recorded Sex Assigned at Not on file Legal Sex Female 7:44 PM E COMMERCE ANALYST Gender Identity Not on file Sexual Orientation Not on file Obstetrics History Para Term AB IAB SAB Ectopic Multiple Livin g Live Births 2 1 1 0 Date Outcome GA Total Labor Labor/2nd/3rd Weight Sex Type Anes PTL Jessica A1 A5 Name Clin SAB Last Filed Vital Signs Vital Sign Reading Time Taken Comments Blood Pressure 140/76 02/01/2025 10:27 AM CDT Pulse 67 02/01/2025 10:27 AM CDT Temperature 36.3 C (97.3 F) 12/28/2023 9:50 AM CDT Respiratory Rate 16 12/28/2023 9:50 AM CDT Oxygen Saturation 98% 12/28/2023 9:50 AM CDT Inhaled Oxygen Concentration - - Weight 59.9 kg (132 lb) 01/04/2025 11:03 AM CDT Height 157.5 cm (5' 2) 01/04/2025 11:03 AM CDT Body Mass Index 24.14 01/04/2025 11:03 AM CDT Plan of Treatment Health Maintenance Due Date Last Done Comments Breast Cancer Screening-Mammogram 1955 Colon Cancer Screening-Colonoscopy 1955 Hepatitis C Screening 1955 Osteoporosis Screening-Bone Density Scan 1957 DTaP/Tdap/Td Vaccine (1 - Tdap) 1968 Hepatitis B Screening 12/04/1975 Pneumococcal vaccine 65+ (1 of 1 - PCV) 12/04/2007 Zoster Vaccine (1 of 2) 12/04/2007 Well Visit 65+ 2022 Depression Screening 05/17/2024 05/17/2023 Fall Risk Assessment 12/27/2024 12/28/2023, 05/27/20 23 Covid-19 Vaccine (6 - 2024-2 6 season) 2025 03/31/2023, 03/09/2022, 05/17/2021, Additional history exists Influenza Vaccine (#1) 2025 04/23/2022, 2020 Cervical Cancer Screening Discontinued 05/17/2023 Procedures Procedure Name Priority Date/Time Associated Diagnosis Comments PAP AND HPV, REFLEX TO HPV GENOTYPES Routine 05/17/2023 12:22 PM E COMMERCE ANALYST PMB (postmenopausal bleeding) from Last 3 Months or Most Recently Relevant to Health Maintenance Results * Pap and HPV, reflex to HPV Genotypes (05/17/2023 12:22 PM E COMMERCE ANALYST) CLINICAL INFORMATION: [facility] Comment:ROUTINE SCREENING LMP [facility] Comment:NONE Previous Pap [facility] Comment:NONE GIVEN Prev. Bx [facility] Comment:NONE GIVEN SOURCE: [facility] Comment:Cervix, Endocervix Pap, specimen adequacy [facility] Comment: Satisfactory for evaluation. Endocervical/transformation zone component absent. HPV interp [facility] Comment: Cytology Results: Negative for intraepithelial lesion or malignancy. COMMENTS [facility] Comment: This Pap test has been evaluated with computer assisted technology. Pet Store Merchandiser Brett [facility] Comment: TLS, CT(ASCP) CT Screening Location: [address] [address] Comment [facility] Comment: EXPLANATORY NOTE: The Pap is a screening test for cervical cancer. It is not a diagnostic test and is subject to false negative and false positive results. It is most reliable when a satisfactory sample, regularly obtained, is submitted with relevant clinical findings and history, and when the Pap result is evaluated along with historic and current clinical information. Human papillomavirus DNA, High Risk E6/E7 Not Detected NOT DETECTED [email or web address] Comment: Not Detected High Risk HPV types (16,18,31,33,35,39,45,51,52, 56,58,59,66,68) were not detected. Other HPV types which cause anogenital lesions may be present. The significance of the other types of HPV in malignant processes has not been established. Methodology: Real Time PCR Thin prep 05/17/2023 12:2 2 PM E COMMERCE ANALYST 05/21/2023 10:06 AM E COMMERCE ANALYST Alice Oliva NP LAB CYTOLOGY ORDERABLES Final Re sult [address] [address] [facility] [place] [address] [place] [address] from Last 3 Months or Most Recently Relevant to Health Maintenance Insurance [facility] Care Teams Dress Shoe Inspector Relationship Specialty Start Date End Date Raz Ramirez MD [address] [place] [address] PCP - General Family Medicine 12/06/23 Liam Cooney MD [address] [facility] [address] [address] Publicity Writer Obstetrics and Gynecology 06/02/23
--- OUTSIDE RECORDS SUMMARY | 2025-04-27 02:49 | XMS_ITS | Encounter Summary ---
Author Organization [facility] Address [address] [place] [address] Care Team Providers Care Middle School Math Teacher Name Role Phone Unavailable Primary Care Provider Unavailabl e Encounter Details Date Type Department Care Team (Late st Contact Info) Description 11/20/2019 Lab Requisition [facility] [address] [facility], [facility] [place] [address] Sisi Wade MD [address] [facility] [address] [place] [address] Social History Tobacco Use Types Packs/Day Years Used Date Smoking Tobacco: Never Assessed Comments Unknown Sex and Gender Information Value Date Recorded Sex Assigned at Not on file Legal Sex Female 6:24 AM OUTSIDE REPAIRER SPECIAL Gender Identity Not on file Sexual Orientation Not on file documented as of this encounter Plan of Treatment Not on file documented as of this encounter Procedures Procedure Name Priority Date/Time Associated Diagnosis Comments DERMATOPATHOLOGY Routine 11/17/2019 12:0 0 AM CDT documented in this encounter Results * DERMATOPATHOLOGY (11/17/2019 12:00 AM CDT) Case Report Dermatopathology Report Case: [id number] Authorizing Provider: Sisi Wade MD Collected: 11/17/2019 12:00 AM Ordering Location: [facility] Received: 11/20/2019 07:27 AM Pathologist: Leena Bailey MD Specimen: Skin, left toe 0 4:50 PM CDT DERMATOPATHOLOGY LABORATORY Final Diagnosis Specimen A. SKIN, left toe: COMPOUND MELANOCYTIC NEVUS, OF ACRAL SKIN, IRRITATED (D22.72) (see microscopic description) 0 4:50 PM CDT DERMATOPATHOLOGY LABORATORY at 1650 CDT Clinical History R/O nevus, irregular border, irregular color. 0 4:50 PM CDT DERMATOPATHOLOGY LABORATORY Gross Description Specimen A: Received is one formalin filled container labeled with the patient's name and designated left toe. The specimen consists of a shave measuring [id number]. Jar 0. 0 4:50 PM CDT DERMATOPATHOLOGY LABORATORY Microscopic Description Specimen A. SKIN, left toe: There is melanin pigment in the stratum corneum. Sections show acral type skin with collections of melanocytes at the dermal-epidermal junction that are forming fairly well defined th ques, highlighted by MART-1/Melan-A immunostain. Scattered melanocytes show evidence of upward migration within the epidermis, favored to be secondary to irritation. Melanocytes are also present in the upper dermis. Additional deeper sections were obtained and reviewed. 0 4:50 PM CDT DERMATOPATHOLOGY LABORATORY Disclaimer An external and internal positive and negative controls are appropriate for the histochemical, immunohistochemical and immunofluorescence stain(s) in this case (if any), except where stated explicitly. The performance characteristics of the stain(s) cited in this report were developed and its performance characteristic determined by the Dermatopathology Laboratory at [facility], directed by Dr. Anshul Hernandez. These tests need not be, and therefore are not, approved by the [place] Food and Drug Administration. The tests are used for clinical purposes. Billing Codes Specimen Charges Stain Charges 06413 1 05938 1 0 4:50 PM CDT DERMATOPATHOLOGY LABORATORY Embedded Images 0 4:50 PM CDT DERMATOPATHOLOGY LABORATORY Pathology/Cytolog y TISSUE SPECIMEN FROM SKIN / Unknown 11/17/2019 11/20/2019 7:27 AM CDT us Sisi Wade MD LAB - PATHOLOGY/CYTOLOGY OR DERABLES Final Result DERMATOPATHOLOGY LABORATORY [facility] - Department of Dermatology [facility] [address], [facility] [phone] documented in this encounter Visit Diagnoses Not on filedocumented in this encounter
[2025-04-27 11:48] VITALS: BP 134/69; PULSE 100; RESP 20; TEMP 36.9; O2SAT 100
[2025-04-27] MEDS: LACTATED RINGERS 1,000 ML 150 ML IV CONT (12:17)
--- NOTE | 2025-04-27 12:30 | PM.IMHP ---
H&P: HPI History of Present Illness Date/Time: 04/27/25 12:30 Chief Complaint: Screening colonoscopy Narrative: This is the patient's first colonoscopy. There are no GI symptoms and there is no family history of colorectal cancer. Review of Systems Review of Systems: All systems reviewed & are unremarkable except as noted in HPI and below [facility] Social History Social History Smoking status: Former smoker Alcohol intake: never Substance use: never Substance use type: does not use Meds Home Medications and Allergies Home Medications ?Medication ?Instructions ?Recorded ?Confirmed ?Type estradiol 0.0375 mg/24 hr 1 patch topical .2 times a week 04/18/25 04/18/25 History semiweekly transdermal patch (Lyllana) Allergies Allergy/AdvReac Type Severity Reaction Status Date / Time No Known Allergies Allergy Verified 04/27/25 11:47 Vital Signs Vital Signs - 24 hr 04/27/25 11:48 Temperature 98.4 F Pulse Rate 100 Respiratory Rate 20 Blood Pressure 134/69 Pulse Oximetry 100 Oxygen Delivery Room Air Exam Const: General: cooperative and healthy appearing Resp: Effort & Inspection: normal respiratory effort and able to speak in complete sentences Auscultation: clear to auscultation bilaterally Cardio: Rate: regular rate Rhythm: regular rhythm GI: Inspection: normal to inspection GI Palp: No No hepatosplenomegaly present Auscultation: normal bowel sounds Rectal Exam: deferred Skin: General skin exam: normal color Psych: Appearance: grossly normal Mental Status: mental status grossly normal Assessment and Plan Assessment and plan (1) Encounter for screening colonoscopy: Code(s): Z12.11 - Encounter for screening for malignant neoplasm of colon Status: Acute Assessment and Plan: The patient is deemed a good candidate for the procedure. Consent signed. Will proceed.
[2025-04-27 13:27] VITALS: BP 104/50; PULSE 74; RESP 14; O2SAT 98
[2025-04-27 13:37] VITALS: BP 114/60; PULSE 69; RESP 16; O2SAT 100
[2025-04-27 13:47] VITALS: BP 119/59; PULSE 63; RESP 15; O2SAT 100
--- NOTE | 2025-05-17 14:30 | P.PNAN_ITS ---
Anes - Initial Pre Proc Eval Procedure: Operation Date: 04/27/25 13:00 Proposed Procedures p Screening Colonoscopy - Fredi Gatica MD Date/Time: 05/17/25 14:30 Surgeon: Fredi Gatica MD Pre Op Diagnosis: Encounter for screening for malignant neoplasm of Patient Data Age: 69 Gender: F Height: 1.6 m Weight: 58.2 kg Last Vital Signs Temp 36.9 C 04/27/25 11:48 Pulse 63 04/27/25 13:47 Resp 15 04/27/25 13:47 BP 119/59 L 04/27/25 13:47 Pulse Ox 100 04/27/25 13:47 O2 Del Method Room Air 04/27/25 13:47 Allergies Allergy/AdvReac Type Severity Reaction Status Date / Time No Known Allergies Allergy Verified 04/27/25 11:47 Home Medications ?Medication ?Instructions ?Recorded ?Confirmed ?Type estradiol 0.0375 mg/24 hr 1 patch topical .2 times a w [place] 04/18/25 04/18/25 History semiweekly transdermal patch (Lyllana) Patient hx anesthesia problems: none Family hx anesthesia problems: none Results Review: All pre-operative results and documents have been reviewed as part of the pre- operative evaluation. [facility] Social History Social History Smoking status: Former smoker Additional smoking assessment comments: smoked lightly in early Alcohol intake: never Substance use: never Substance use type: does not use Living arrangements: with family Spiritual care concerns: No Anes - Eval Final PreProcedure Day of Procedure 05/17/25 14:30 Patient weight: normal Heart: regular rate and rhythm Lungs: clear to auscultation and normal air movement Airway: Mallampati scale class II Neurological: alert and oriented Last oral intake: >/= 8 hours ASA classification: II Emergent: no Anesthetic plan: proceed Anesthesia type and monitoring: general GIVS and standard monitoring Results Review: All pre-operative results and documents have been reviewed as part of the pre- operative evaluation. Informed Consent: The patient's anesthetic plan and its attendant risks and benefits were discussed with the patient/family/POA. Questions were solicited and answers provided to the satisfaction of the patient/family/POA.
== END 2025-04-27 14:03 | disposition home or self-care (01) ==
PROVIDERS: PCP Family Medicine; Referring Provider Family Medicine; Visit Provider Internal Medicine Gastroenterology
PROC: 0DJD8ZZ Inspection of Lower Intestinal Tract, Via Natural or Artificial Opening Endoscopic (ICD-10-PCS; CPT 45378; principal; 2025-04-27 13:00)
DX: Z12.11 Encounter for screening for malignant neoplasm of colon (principal); Z87.891 Personal history of nicotine dependence
CPT/HCPCS: 45378; J2704; J7120